=== PATIENT | female | born 1955 | race American Indian/Alaskan Native ===

== ENCOUNTER 2016-07-10 12:36 | Emergency (ER) | payer MEDICAID ==
[2016-07-10] MEDS ORDERED: NORCO 7.5/325 PO ONE (13:08)
[2016-07-10] MEDS ORDERED: TORADOL IM ONE (13:08)
[2016-07-10] MEDS ORDERED: DECADRON IM ONE (13:08)
--- NOTE | 2016-07-10 13:11 | Emergency Department Report ---
ED Extremity Problem HPI - General Chief complaint: Extremity Injury, Lower Stated complaint: LT FOOT SWELLING Source: patient Mode of arrival: Ambulatory Limitations: No Limitations - History of Present Illness Initial comments: 61 year old female presents to ED with left foot swelling and pain x2-3 days. patient denies trauma. patient is stable, neurologically intact and in no acute distress. MD Complaint: extremity pain, extremity swelling -: Sudden Location: left (foot) History of Same: No -: Yes arthralgia, No fever Quality: aching Consistency: constant Improves with: rest Worsens with: weight bearing, walking Associated Symptoms: denies other symptoms - Related Data Home Medications Medication Instructions Recorded Confirmed Last Taken Advair Diskus 250-50 mcg 10/20/14 10/20/14 10/19/14 Albuterol Sulfate [Ventolin HFA] 10/20/14 10/20/14 Unknown Amitriptyline [Elavil] 25 mg PO BID 10/20/14 10/20/14 Unknown Aspirin [Aspirin BABY CHEW TAB] 81 mg PO QDAY 10/20/14 10/20/14 10/20/14 AtorvaSTATin [Lipitor] 80 mg PO DAILY 10/20/14 10/20/14 10/19/14 Carvedilol [Coreg] 6.25 mg PO BID 10/20/14 10/20/14 10/20/14 Cetirizine HCl [ZyrTEC] 10 mg PO 10/20/14 10/20/14 10/19/14 FLUoxetine HCL [PROzac] 40 mg PO QDAY 10/20/14 10/20/14 10/19/14 Furosemide [Lasix] 20 mg PO QDAY 10/20/14 10/20/14 10/19/14 Loratadine [Claritin] 10 mg PO DAILY 10/20/14 10/20/14 10/19/14 Losartan 100 mg PO DAILY 10/20/14 10/20/14 10/20/14 Pioglitazone (Nf) [Actos] 15 mg PO QDAY 10/20/14 10/20/14 10/19/14 Ranitidine HCl [Zantac 150 MG TAB] 150 mg PO 10/20/14 10/20/14 Unknown Vitamin D3 1 tab PO DAILY 10/20/14 10/20/14 10/19/14 hydrOXYzine HCL [Atarax] 10/20/14 10/20/14 Unknown Previous Rx's Medication Instructions Recorded Last Taken Type Fluconazole [Diflucan TAB] 150 mg PO ONCE #1 tablet 10/20/14 Unknown Rx Ibuprofen [Motrin] 400 mg PO Q8H PRN #20 tablet 10/20/14 Unknown Rx Sulfamethoxazole/Trimethoprim 1 each PO BID #20 tablet 10/20/14 Unknown Rx [Bactrim DS TAB] traMADol [Ultram 50 MG tab] 50 mg PO Q6HR PRN #15 tablet 10/20/14 Unknown Rx Ketorolac [Toradol] 10 mg PO Q6H PRN #20 tablet 07/10/16 Unknown Rx Allergies Allergy/AdvReac Type Severity Reaction Status Date / Time codeine Allergy Anaphylaxis Verified 10/20/14 13:03 ED Review of Systems ROS: Stated complaint: LT FOOT SWELLING Other details as noted in HPI Constitutional: denies: chills, fever Eyes: denies: eye pain, eye discharge, vision change ENT: denies: ear pain, throat pain Respiratory: denies: cough, shortness of breath, wheezing Cardiovascular: denies: chest pain, palpitations Endocrine: no symptoms reported Gastrointestinal: denies: abdominal pain, nausea, diarrhea Genitourinary: denies: urgency, dysuria, discharge Musculoskeletal: arthralgia (left foot). denies: back pain, joint swelling Skin: denies: rash, lesions Neurological: denies: headache, weakness, paresthesias Psychiatric: denies: anxiety, depression Hematological/Lymphatic: denies: easy bleeding, easy bruising ED Past Medical Hx - Past Medical History Previous Medical History?: Yes Hx Hypertension: Yes Hx Diabetes: Yes Hx Renal Disease: Yes (decreased kidney function) Additional medical history: Poor kidney function, Vaginal delivery x 2 - Surgical History Past Surgical History?: No - Social History Smoking Status: Former Smoker Substance Use Type: Prescribed - Medications Home Medications: Home Medications Medication Instructions Recorded Confirmed Last Taken Type Advair Diskus 250-50 mcg 10/20/14 10/20/14 10/19/14 History Albuterol Sulfate [Ventolin HFA] 10/20/14 10/20/14 Unknown History Amitriptyline [Elavil] 25 mg PO BID 10/20/14 10/20/14 Unknown History Aspirin [Aspirin BABY CHEW TAB] 81 mg PO QDAY 10/20/14 10/20/1410/20/15 History AtorvaSTATin [Lipitor] 80 mg PO DAILY 10/20/14 10/20/14 10/19/14 History Carvedilol [Coreg] 6.25 mg PO BID 10/20/14 10/20/14 10/20/14 History Cetirizine HCl [ZyrTEC] 10 mg PO 10/20/14 10/20/14 10/19/14 History FLUoxetine HCL [PROzac] 40 mg PO QDAY 10/20/14 10/20/14 10/19/14 History Fluconazole [Diflucan TAB] 150 mg PO ONCE #1 tablet 10/20/14 Unknown Rx Furosemide [Lasix] 20 mg PO QDAY 10/20/14 10/20/14 10/19/14 History Ibuprofen [Motrin] 400 mg PO Q8H PRN #20 tablet 10/20/14 Unknown Rx Loratadine [Claritin] 10 mg PO DAILY 10/20/14 10/20/14 10/19/14 History Losartan 100 mg PO DAILY 10/20/14 10/20/14 10/20/14 History Pioglitazone (Nf) [Actos] 15 mg PO QDAY 10/20/14 10/20/14 10/19/14 History Ranitidine HCl [Zantac 150 MG TAB] 150 mg PO 10/20/14 10/20/14 Unknown History Sulfamethoxazole/Trimethoprim 1 each PO BID #20 tablet 10/20/14 Unknown Rx [Bactrim DS TAB] Vitamin D3 1 tab PO DAILY 10/20/14 10/20/14 10/19/14 History hydrOXYzine HCL [Atarax] 10/20/14 10/20/14 Unknown History traMADol [Ultram 50 MG tab] 50 mg PO Q6HR PRN #15 tablet 10/20/14 Unknown Rx Ketorolac [Toradol] 10 mg PO Q6H PRN #20 tablet 07/10/16 Unknown Rx ED Physical Exam - General Limitations: No Limitations General appearance: alert, in no apparent distress - Head Head exam: Present: atraumatic, normocephalic - Eye Eye exam: Present: normal appearance - ENT ENT exam: Present: mucous membranes moist - Neck Neck exam: Present: normal inspection. Absent: tenderness - Respiratory Respiratory exam: Present: normal lung sounds bilaterally. Absent: respiratory distress - Cardiovascular Cardiovascular Exam: Present: regular rate, normal rhythm. Absent: systolic murmur, diastolic murmur, rubs, gallop - GI/Abdominal GI/Abdominal exam: Present: soft, normal bowel sounds. Absent: tenderness - Extremities Exam Extremities exam: Present: normal inspection - Expanded Lower Extremity Exam Left Hip exam: Present: normal inspection Upper Leg exam: Present: normal inspection Knee exam: Present: normal inspection Lower Leg exam: Present: normal inspection Ankle exam: Present: normal inspection Foot/Toe exam: Present: tenderness (normal dorsalis pedis pulses bilaterally, normal sensory in feet bilaterally). Absent: swelling, abrasion, laceration, ecchymosis, deformity, erythema - Back Exam Back exam: Present: normal inspection - Neurological Exam Neurological exam: Present: alert, oriented X3 - Psychiatric Psychiatric exam: Present: normal affect, normal mood - Skin Skin exam: Present: warm, dry, intact, normal color. Absent: rash ED Course Vital Signs 07/10/16 07/10/16 12:39 14:33 Temperature 98.1 F 97.5 F L Pulse Rate 89 85 Respiratory 20 18 Rate Blood Pressure 126/87 Blood Pressure 126/80 [Right] O2 Sat by Pulse 100 97 Oximetry ED Medical Decision Making - Radiology Data Radiology results: report reviewed Xr left foot No fracture or dislocation. Suspicion of mild arthritic chagnes first tarsometatarsal and metatarsophalangeal joint. - Medical Decision Making 61 year old female presents to ED with left foot pain. Patient is stable, neurologically intact and in no acute distress. patient has arthritic changes on xray per radiologist. patient will be given pain medication and crutches for assistance in walking. Critical care attestation.: If time is entered above; I have spent that time in minutes in the direct care of this critically ill patient, excluding procedure time. ED Disposition Clinical Impression: Arthritis Disposition: DISCHARGED TO HOME OR SELFCARE Is pt being admited?: No Does the pt Need Aspirin: No Condition: Stable Prescriptions: Ketorolac [Toradol] 10 mg PO Q6H PRN #20 tablet PRN Reason: Pain Referrals: PRIMARY CARE, [Primary Care Provider] - 3-5 Days
--- NOTE | 2016-07-10 13:39 | XRay Report ---
Left foot 3 views: History: 40 swelling. Findings: No articular abnormality. No fracture or dislocation. Suspicion of mild arthritic changes first tarsometatarsal and metatarsophalangeal joint. No periosteal reaction. No soft tissue calcification. Spur posterior superior and posterior inferior calcaneum. Impression: No definite acute findings.
[2016-07-10 14:35] VITALS: BP 126/80
== END 2016-07-10 14:33 | disposition home or self-care (01) ==
LOC: ED 12:36
DX: M19.072 Primary osteoarthritis, left ankle and foot (principal); I10 Essential (primary) hypertension; E11.9 Type 2 diabetes mellitus without complications; Z88.6 Allergy status to analgesic agent; Z87.891 Personal history of nicotine dependence; Z79.82 Long term (current) use of aspirin
CPT/HCPCS: 73630; 96372; 99283; J1100; J1885

== ENCOUNTER 2018-05-15 16:04 | Emergency (ER) | payer MEDICAID ==
[2018-05-15] MEDS ORDERED: ULTRAM PO ONE (20:34)
--- NOTE | 2018-05-15 20:47 | Emergency Department Report ---
ED Lower Extremity HPI - General Chief Complaint: Extremity Injury, Lower Stated Complaint: FELL (L) FOOT SWOLLEN/BACK PAIN Time Seen by Provider: 05/15/18 20:25 Source: patient Mode of arrival: Ambulatory Limitations: No Limitations - History of Present Illness Initial Comments: Left Foot pain and swelling and bruising pain is described as 5/10 aching no numbness or tingling pain is exacerbated weight bearing pt relieved by elevation and rest there is no calf pain. MD Complaint: foot injury Onset/Timin -: week(s) Injury: Foot: Left Type of Injury: eversion Place: home Severity: moderate Severity scale (0 -10): 5 Improves With: rest Worsens With: movement, palpation Context: fall Associated Symptoms: snap/pop sensation, swelling, tingling, able to partially bear weight - Related Data Home Medications Medication Instructions Recorded Confirmed Last Taken Advair Diskus 250-50 mcg 10/20/14 10/20/14 10/19/14 Albuterol Sulfate [Ventolin HFA] 10/20/14 10/20/14 Unknown Amitriptyline [Elavil] 25 mg PO BID 10/20/14 10/20/14 Unknown Aspirin [Aspirin BABY CHEW TAB] 81 mg PO QDAY 10/20/14 10/20/14 10/20/14 AtorvaSTATin [Lipitor] 80 mg PO DAILY 10/20/14 10/20/14 10/19/14 Carvedilol [Coreg] 6.25 mg PO BID 10/20/14 10/20/14 10/20/14 Cetirizine HCl [ZyrTEC] 10 mg PO 10/20/14 10/20/14 10/19/14 FLUoxetine HCL [PROzac] 40 mg PO QDAY 10/20/14 10/20/14 10/19/14 Furosemide [Lasix] 20 mg PO QDAY 10/20/14 10/20/14 10/19/14 Loratadine [Claritin] 10 mg PO DAILY 10/20/14 10/20/14 10/19/14 Losartan 100 mg PO DAILY 10/20/14 10/20/14 10/20/14 Pioglitazone (Nf) [Actos] 15 mg PO QDAY 10/20/14 10/20/14 10/19/14 Ranitidine HCl [Zantac 150 MG TAB] 150 mg PO 10/20/14 10/20/14 Unknown Vitamin D3 1 tab PO DAILY 10/20/14 10/20/14 10/19/14 hydrOXYzine HCL [Atarax] 10/20/14 10/20/14 Unknown Previous Rx's Medication Instructions Recorded Last Taken Type Fluconazole [Diflucan TAB] 150 mg PO ONCE #1 tablet 10/20/14 Unknown Rx Ibuprofen [Motrin] 400 mg PO Q8H PRN #20 tablet 10/20/14 Unknown Rx Sulfamethoxazole/Trimethoprim 1 each PO BID #20 tablet 10/20/14 Unknown Rx [Bactrim DS TAB] traMADol [Ultram 50 MG tab] 50 mg PO Q6HR PRN #15 tablet 10/20/14 Unknown Rx Ketorolac [Toradol] 10 mg PO Q6H PRN #20 tablet 07/10/16 Unknown Rx Acetaminophen [Tylenol Extra 1,000 mg PO Q6H PRN #30 tablet 05/15/18 Unknown Rx Strength] Allergies Allergy/AdvReac Type Severity Reaction Status Date / Time codeine Allergy Anaphylaxis Verified 05/15/18 16:05 ED Review of Systems ROS: Stated complaint: FELL (L) FOOT SWOLLEN/BACK PAIN Other details as noted in HPI Constitutional: denies: chills, fever Eyes: denies: eye pain, eye discharge, vision change ENT: denies: ear pain, throat pain Respiratory: denies: cough, shortness of breath, wheezing Cardiovascular: denies: chest pain, palpitations Endocrine: no symptoms reported Gastrointestinal: denies: abdominal pain, nausea, diarrhea Genitourinary: denies: urgency, dysuria, discharge Musculoskeletal: joint swelling (ankle swelling ), arthralgia Skin: denies: rash, lesions Neurological: denies: headache, weakness, paresthesias Psychiatric: denies: anxiety, depression Hematological/Lymphatic: denies: easy bleeding, easy bruising ED Past Medical Hx - Past Medical History Hx Hypertension: Yes Hx Diabetes: Yes Hx Renal Disease: Yes (decreased kidney function) Additional medical history: Poor kidney function, Vaginal delivery x 2 - Social History Smoking Status: Never Smoker Substance Use Type: None - Medications Home Medications: Home Medications Medication Instructions Recorded Confirmed Last Taken Type Advair Diskus 250-50 mcg 10/20/14 10/20/14 10/19/14 History Albuterol Sulfate [Ventolin HFA] 10/20/14 10/20/14 Unknown History Amitriptyline [Elavil] 25 mg PO BID 10/20/14 10/20/14 Unknown History Aspirin [Aspirin BABY CHEW TAB] 81 mg PO QDAY 10/20/14 10/20/14 10/20/14 History AtorvaSTATin [Lipitor] 80 mg PO DAILY 10/20/14 10/20/14 10/19/14 History Carvedilol [Coreg] 6.25 mg PO BID 10/20/14 10/20/14 10/20/14 History Cetirizine HCl [ZyrTEC] 10 mg PO 10/20/14 10/20/14 10/19/14 History FLUoxetine HCL [PROzac] 40 mg PO QDAY 10/20/14 10/20/14 10/19/14 History Fluconazole [Diflucan TAB] 150 mg PO ONCE #1 tablet 10/20/14 Unknown Rx Furosemide [Lasix] 20 mg PO QDAY 10/20/14 10/20/14 10/19/14 History Ibuprofen [Motrin] 400 mg PO Q8H PRN #20 tablet 10/20/14 Unknown Rx Loratadine [Claritin] 10 mg PO DAILY 10/20/14 10/20/14 10/19/14 History Losartan 100 mg PO DAILY 10/20/14 10/20/14 10/20/14 History Pioglitazone (Nf) [Actos] 15 mg PO QDAY 10/20/14 10/20/14 10/19/14 History Ranitidine HCl [Zantac 150 MG TAB] 150 mg PO 10/20/14 10/20/14 Unknown History Sulfamethoxazole/Trimethoprim 1 each PO BID #20 tablet 10/20/14 Unknown Rx [Bactrim DS TAB] Vitamin D3 1 tab PO DAILY 10/20/14 10/20/14 10/19/14 History hydrOXYzine HCL [Atarax] 10/20/14 10/20/14 Unknown History traMADol [Ultram 50 MG tab] 50 mg PO Q6HR PRN #15 tablet 10/20/14 Unknown Rx Ketorolac [Toradol] 10 mg PO Q6H PRN #20 tablet 07/10/16 Unknown Rx Acetaminophen [Tylenol Extra 1,000 mg PO Q6H PRN #30 tablet 05/15/18 Unknown Rx Strength] ED Physical Exam - General Limitations: No Limitations General appearance: alert, in no apparent distress - Head Head exam: Present: atraumatic, normocephalic - Eye Eye exam: Present: normal appearance - ENT ENT exam: Present: mucous membranes moist - Neck Neck exam: Present: normal inspection, full ROM, lymphadenopathy - Respiratory Respiratory exam: Present: normal lung sounds bilaterally. Absent: respiratory distress - Cardiovascular Cardiovascular Exam: Present: regular rate, normal rhythm, normal heart sounds. Absent: systolic murmur, diastolic murmur, rubs, gallop - GI/Abdominal GI/Abdominal exam: Present: soft, normal bowel sounds. Absent: tenderness, rebound, bruit, hernia - Rectal Rectal exam: Present: deferred - Extremities Exam Extremities exam: Present: tenderness (left lateral dors foot ankle tib fib pain ), joint swelling. Absent: calf tenderness - Expanded Lower Extremity Exam Left Lower Leg exam: Present: full ROM, tenderness, swelling, ecchymosis, erythema. Absent: abrasion, laceration, deformity, crepidus, dislocation, palpable cord, Sandrine's sign Ankle exam: Present: normal inspection, full ROM, tenderness, swelling. Absent: abrasion, laceration, deformity, crepidus, dislocation, erythema, anterior draw sign Foot/Toe exam: Present: normal inspection, full ROM, swelling, ecchymosis, erythema. Absent: tenderness, abrasion, laceration, deformity, crepidus, dislocation, amputation, puncture wound, foreign body, calcaneal tenderness, tenderness at base of 5th metatarsal, nail avulsion, subungual hematoma Neuro vascular tendon exam: Absent: no vascular compromise, pulse deficit, abnormal cap refill, motor deficit, sensory deficit, tendon deficit, abnormal 2- point discrimination, foot drop, significant pain with passive ROM of distal joint Gait: Positive: observed and limited by pain - Back Exam Back exam: Present: normal inspection, full ROM. Absent: tenderness, CVA ten derness (R), CVA tenderness (L), muscle spasm, paraspinal tenderness, rash noted - Neurological Exam Neurological exam: Present: alert, oriented X3, CN II-XII intact, abnormal gait (mild limp). Absent: reflexes normal - Psychiatric Psychiatric exam: Present: normal affect, normal mood - Skin Skin exam: Present: warm, dry, intact, normal color. Absent: rash ED Course Vital Signs 05/15/18 05/15/18 16:10 20:47 Temperature 97.8 F Pulse Rate 93 H Respiratory 17 17 Rate Blood Pressure 110/65 O2 Sat by Pulse 95 Oximetry ED Lower Extremity MDM - Radiology Data Radiology results: report reviewed, image reviewed Ordering Physician: LAVERNE TAMAYO NP Date of Service: 05/15/18 Procedure(s): XR tibia fibula 2V LT Accession Number(s): [id number] cc: LAVERNE TAMAYO NP Fluoro Time In Minutes: PROCEDURE: XR TIBIA FIBULA 2V LT TECHNIQUE: Tibia-fibula left AP and lateral views HISTORY: tib fib pain swelling ecchymosis COMPARISONS: FINDINGS: No acute fracture identified. No dislocation seen. Joint spaces are within normal limits. No radiopaque foreign bodies are identified. IMPRESSION: Negative no acute abnormality identified. This document is electronically signed by Brigido Burden MD., May 15 2018 09:24:22 PM ET Transcribed By: LYNDSEY Dictated By: FLORIAN BURDEN MD Electronically Authenticated By: FLORIAN BURDEN MD Signed Date/Time: 05/15/182125 DD/ 02 TD/TT: 05/15/182102 His elbow longer a regular rate is as above over 10 normal level LXXX low level with ulnar was normal color is we Patient: SABINO MARIO MR#: [id number] : 1955 Acct:[id number] Age/Sex: 63 / F ADM Date: 05/15/18 Loc: ED Attending Dr: Ordering Physician: LAVERNE TAMAYO NP Date of Service: 05/15/18 Procedure(s): XR foot 3+V LT Accession Number(s): [id number] cc: LAVERNE TAMAYO NP Fluoro Time In Minutes: PROCEDURE: XR FOOT 3+V LT TECHNIQUE: Left foot 3 views HISTORY: foot swelling COMPARISONS: FINDINGS: No fracture identified. No dislocation seen. Joint spaces are within normal limits. No radiopaque foreign body observed. IMPRESSION: Negative foot series. This document is electronically signed by Brigido Burden MD., May 15 2018 09:27:21 PM ET Transcribed By: LYNDSEY Dictated By: FLORIAN BURDEN MD Electronically Authenticated By: FLORIAN BURDEN MD Signed Date/Time: 05/15/182128 DD/ 02 TD/TT: 05/15/182102 - Medical Decision Making xray neg for fracture mild soft tissue swelling no pitting edema distal pulses intact +2 bilat, brand advisor < 3 sec bilat, rom intact neg arriola's sign, pt is weight bearing, plan: tylenol, ultram for sever pain pt , crutches, pt will follow up with [place] PCP Dr Goodman in 2 days , given referral to pcp Dr Martinez if unable to see pcp pt verbalized agreement and understanding of discharge plan. Critical care attestation.: If time is entered above; I have spent that time in minutes in the direct care of this critically ill patient, excluding procedure time. ED Disposition Clinical Impression: Foot sprain Qualifiers: Encounter type: initial encounter Laterality: left Qualified Code(s): S93.602A - Unspecified sprain of left foot, initial encounter Disposition: TO HOME OR SELFCARE Is pt being admited?: No Does the pt Need Aspirin: No Condition: Stable Instructions: Foot Sprain (ED), Crutch Instructions (ED) Prescriptions: Acetaminophen [Tylenol Extra Strength] 1,000 mg PO Q6H PRN #30 tablet PRN Reason: pain Referrals: SHIRLENE MARTINEZ MD [Staff Physician] - 3-5 Days PRIMARY CARE, [Primary Care Provider] - 3-5 Days Forms: Work/School Release Form(ED) Time of Disposition: 22:01
--- NOTE | 2018-05-15 21:26 | XRay Report ---
PROCEDURE: XR TIBIA FIBULA 2V LT TECHNIQUE: Tibia-fibula left AP and lateral views HISTORY: tib fib pain swelling ecchymosis COMPARISONS: FINDINGS: No acute fracture identified. No dislocation seen. Joint spaces are within normal limits. No radiopaq ue foreign bodies are identified. IMPRESSION: Negative no acute abnormality identified. This document is electronically signed by Brigido Mccord MD., May 15 2018 09:24:22 PM ET
--- NOTE | 2018-05-15 21:29 | XRay Report ---
PROCEDURE: XR FOOT 3+V LT TECHNIQUE: Left foot 3 views HISTORY: foot swelling COMPARISONS: FINDINGS: No fracture identified. No dislocation seen. Joint spaces are within normal limits. No radiopaque for eign body observed. IMPRESSION: Negative foot series. This document is electronically signed by Brigido Mccord MD., May 15 2018 09:27:21 PM ET
[2018-05-15 22:40] VITALS: BP 103/75
== END 2018-05-15 22:25 | disposition home or self-care (01) ==
LOC: ED 16:04
DX: S93.602A Unspecified sprain of left foot, initial encounter (principal); I10 Essential (primary) hypertension; E11.9 Type 2 diabetes mellitus without complications; Z79.82 Long term (current) use of aspirin; Z88.6 Allergy status to analgesic agent; W18.30XA Fall on same level, unspecified, initial encounter; Y93.89 Activity, other specified; Y92.89 Other specified places as the place of occurrence of the external cause; Y99.8 Other external cause status
CPT/HCPCS: 99284

== ENCOUNTER 2019-03-12 11:50 | Emergency (ER) | payer MEDICARE, MEDICAID ==
--- NOTE | 2019-03-12 12:06 | Event Note ---
ED Screening Note Date of service: 03/12/19 Time: 12:05 ED Screening Note: 64 y o male presents cc of fever, cough , malaise x monday with no relief and feel like sx are getting worse even with otc meds some wheezing, rales This initial assessment/diagnostic orders/clinical plan/treatment(s) is/are subject to change based on patients health status, clinical progression and re- assessment by fellow clinical providers in the ED. Further treatment and workup at subsequent clinical providers discretion. Patient/guardian urged not to elope from the ED as their condition may be serious if not clinically assessed and managed. Initial orders include: cxr- acc eval
--- NOTE | 2019-03-12 12:49 | XRay Report ---
CHEST 2 VIEWS INDICATION / CLINICAL INFORMATION: Fever and cough. COMPARISON: None currently available. FINDINGS: SUPPORT DEVICES: None. HEART / MEDIASTINUM: The heart size and pulmonary vasculature are normal. LUNGS / PLEURA: No significant pulmonary or pleural abnormality. No pneumothorax. ADDITIONAL FINDINGS: No significant additional findings. IMPRESSION: No acute abnormality. No evidence of pneumonia. Signer Name: Mega Thorne MD Signed: 03/12/2019 12:45 PM Workstation Name: [id number]
--- NOTE | 2019-03-12 17:17 | Emergency Department Report ---
Minor Respiratory - HPI Chief Complaint: Upper Respiratory Infection Stated Complaint: FLU SYM Time Seen by Provider: 03/12/19 17:14 Duration: 3 Days Pain Location: Nose, Chest Severity: moderate Minor Respiratory: Yes Rhinorrhea, Yes Sore Throat, Yes Able to Tolerate Fluids, Yes Cough, Yes Sick Contacts, Yes Chest Pain, Yes Fever, No Ear Pain, No Hemoptysis, No Shortness of Breath Other History: This is a 64-year-old -Portuguese female who presents to the emergency room with a sore throat, cough, chest discomfort, headache, and myalgi a for 3 days. Patient states she's taken Tylenol with minimal improvement of symptoms. Past medical history of diabetes, chronic kidney disease, hyperlipidemia, and hypertension. She denies nausea, vomiting, diarrhea, abdominal pain, chest palpitations, or weakness. ED Review of Systems ROS: Stated complaint: FLU SYM Other details as noted in HPI Constitutional: denies: chills, fever ENT: throat pain, congestion. denies: ear pain Respiratory: cough. denies: shortness of breath, wheezing Cardiovascular: denies: chest pain (chest discomfort with cough), palpitations Gastrointestinal: denies: abdominal pain, nausea, diarrhea Musculoskeletal: denies: back pain, joint swelling, arthralgia Skin: denies: rash, lesions Neurological: denies: headache, weakness, paresthesias Psychiatric: denies: anxiety, depression ED Past Medical Hx - Past Medical History Hx Hypertension: Yes Hx Diabetes: Yes Hx Renal Disease: Yes (decreased kidney function) Additional medical history: Poor kidney function, Vaginal delivery x 2 - Surgical History Past Surgical History?: No - Social History Smoking Status: Never Smoker Substance Use Type: Alcohol - Medications Home Medications: Home Medications Medication Instructions Recorded Confirmed Last Taken Type Advair Diskus 250-50 mcg 10/20/14 10/20/14 10/19/14 History Albuterol Sulfate [Ventolin HFA] 10/20/14 10/20/14 Unknown History Amitriptyline [Elavil] 25 mg PO BID 10/20/14 10/20/14 Unknown History Aspirin [Aspirin BABY CHEW TAB] 81 mg PO QDAY 10/20/14 10/20/14 10/20/14 History AtorvaSTATin [Lipitor] 80 mg PO DAILY 10/20/14 10/20/14 10/19/14 History Cetirizine HCl [ZyrTEC] 10 mg PO 10/20/14 10/20/14 10/19/14 History FLUoxetine HCL [PROzac] 40 mg PO QDAY 10/20/14 10/20/14 10/19/14 History Fluconazole [Diflucan TAB] 150 mg PO ONCE #1 tablet 10/20/14 Unknown Rx Furosemide [Lasix] 20 mg PO QDAY 10/20/14 10/20/14 10/19/14 History Ibuprofen [Motrin] 400 mg PO Q8H PRN #20 tablet 10/20/14 Unknown Rx Loratadine (Nf) [Claritin] 10 mg PO DAILY 10/20/14 10/20/14 10/19/14 History Losartan 100 mg PO DAILY 10/20/14 10/20/14 10/20/14 History Pioglitazone (Nf) [Actos] 15 mg PO QDAY 10/20/14 10/20/14 10/19/14 History Sulfamethoxazole/Trimethoprim 1 each PO BID #20 tablet 10/20/14 Unknown Rx [Bactrim DS TAB] Vitamin D3 1 tab PO DAILY 10/20/14 10/20/14 10/19/14 History carvediloL [Coreg] 6.25 mg PO BID 10/20/14 10/20/14 10/20/14 History hydrOXYzine HCL [Atarax] 10/20/14 10/20/14 Unknown History raNITIdine HCl [Zantac 150 MG TAB] 150 mg PO 10/20/14 10/20/14 Unknown History traMADoL [Ultram 50 MG tab] 50 mg PO Q6HR PRN #15 tablet 10/20/14 Unknown Rx Ketorolac [Toradol] 10 mg PO Q6H PRN #20 tablet 07/10/16 Unknown Rx Acetaminophen [Tylenol Extra 1,000 mg PO Q6H PRN #30 tablet 05/15/18 Unknown Rx Strength] Albuterol INH(or & Nicu Only) 2 puff IH QID PRN #8.5 gram 03/12/19 Unknown Rx [ProAir HFA Inhaler] Azithromycin [Zithromax Z-LJ] 0 mg PO DAILY #6 tab 03/12/19 Unknown Rx Benzonatate [Tessalon Perles] 100 mg PO Q8HR PRN #30 capsule 03/12/19 Unknown Rx Minor Respiratory Exam - Exam General: Vital signs noted. No distress. Alert and acting appropriately. HEENT: Yes Moist Mucous Membranes, Yes Rhinorrhea (turbinates congested with clear discharge), No Pharyngeal Erythema (erythematous posterior pharynx, uvula midline, no exudate, no tongue elevation), No Pharyngeal Exudates, No Conjuctival Injection, No Frontal Tenderness, No Maxillary Tenderness Ear: Neither TM Bulge, Neither TM Erythema, Neither EAC Pain, Neither EAC Discharge Neck: Yes Supple, No Adenopathy Lungs: Yes Good Air Exchange, Yes Cough, No Wheezes, No Ronchi, No Stridor, No Labored Respirations, No Retractions, No Use of Accessory Muscles, No Other Abnormal Lung Sounds Heart: Yes Regular, No Murmur Abdomen: Yes Normal Bowel Sounds, No Tenderness, No Peritoneal Signs Skin: No Rash, No Edema Neurologic: Alert and oriented, no deficits. Musculoskeletal: Unremarkable. ED Course Vital Signs 03/12/19 11:57 Temperature 98.3 F Pulse Rate 100 H Respiratory 18 Rate Blood Pressure 144/83 O2 Sat by Pulse 97 Oximetry ED Medical Decision Making - Radiology Data Radiology results: report reviewed Chest x-ray impression: No acute abnormality. No evidence of pneumonia. - Medical Decision Making 64 y.o. female that presents with upper respiratory symptoms for 3 days. VSS and patient in no acute distress. No history of immunocompromise. Past medical history of diabetes type 2, chronic kidney disease, hyperlipidemia, hypertension. Nontoxic appearance. Patient no trismus, no airway compromise. Able to tolerate by mouth. Chest x-ray obtained in dictated by radiologist with no acute cardiopulmonary findings. Given History and Exam I have low suspicion for cause of LE[employer]CH[employer], Epiglottitis, Bacterial Tracheitis, acute HIV, or Strep throat. Bronchitis. Start short course of antibiotics, NSAIDs, and albuterol inhaler. Reviewed results with patient. Discharge home with prompt outpatient PCP follow up; return precautions discussed. Critical care attestation.: If time is entered above; I have spent that time in minutes in the direct care of this critically ill patient, excluding procedure time. ED Disposition Clinical Impression: Bronchitis, Cough in adult Disposition: DC-01 TO HOME OR SELFCARE Is pt being admited?: No Condition: Stable Instructions: Acute Bronchitis (ED) Additional Instructions: Increase fluid intake and rest. Wash hands frequently. Continue taking Tylenol or ibuprofen to control fever. F/U with Primary Care Provider. Return to ER if fever, shortness of breath, or difficulty breathing after 48 hours of supportive care. Prescriptions: Albuterol INH(or & Nicu Only) [ProAir HFA Inhaler] 2 puff IH QID PRN #8.5 gram PRN Reason: Shortness Of Breath Benzonatate [Tessalon Perles] 100 mg PO Q8HR PRN #30 capsule PRN Reason: Cough Azithromycin [Zithromax Z-LJ] 0 mg PO DAILY #6 tab Referrals: [facility] [Provider Group] - 3-5 Days [facility] [Outside] - 3-5 Days [facility] [Outside] - 3-5 Days Forms: Work/School Release Form(ED) Time of Disposition: 17:36
[2019-03-12 17:49] VITALS: BP 138/78
== END 2019-03-12 17:48 | disposition home or self-care (01) ==
LOC: ED 11:50
DX: J40 Bronchitis, not specified as acute or chronic (principal); I10 Essential (primary) hypertension; E11.9 Type 2 diabetes mellitus without complications; Z79.899 Other long term (current) drug therapy
CPT/HCPCS: 71046